=== PATIENT | female | born 1990 | race Two or more races ===

== ENCOUNTER 2019-07-09 15:36 | Emergency (ER) | payer OTHER ==
[~2019-07-09] VITALS: Ht 170.2 cm; Wt 65.8 kg
[~2019-07-09 15:36] MED LIST: DOCUSATE SODIU100 MG PO; FERROUS SU325 ( 65 ) PO; IRON1TAB4 PO; KETO10TA2 PO; MULTI COMPLETE1 EACH; Mylicon 125MG PO; OXYC1TAB9 PO; ZANTAC300 MG PO
== END 2019-07-09 20:29 | disposition home or self-care (01) ==
LOC: ER 15:36
DX: S00.83XA Contusion of other part of head, initial encounter (principal); W22.8XXA Striking against or struck by other objects, initial encounter; Y93.89 Activity, other specified; Y92.098 Other place in other non-institutional residence as the place of occurrence of the external cause; Y99.8 Other external cause status

== ENCOUNTER 2019-09-02 19:41 | Emergency (ER) | payer OTHER ==
[~2019-09-02] VITALS: Ht 162.6 cm; Wt 59.0 kg
== END 2019-09-02 20:26 | disposition home or self-care (01) ==
LOC: ER 19:41
DX: M25.512 Pain in left shoulder (principal); M25.511 Pain in right shoulder

== ENCOUNTER 2019-10-14 19:39 | Emergency (ER) | payer OTHER ==
[~2019-10-14] VITALS: Ht 162.6 cm; Wt 61.2 kg
== END 2019-10-14 21:24 | disposition home or self-care (01) ==
LOC: ER 19:39
DX: B34.9 Viral infection, unspecified (principal); Z03.818 Encounter for observation for suspected exposure to other biological agents ruled out; R51 Headache

== ENCOUNTER 2021-02-08 12:19 | Emergency (ER) | payer OTHER ==
[~2021-02-08] VITALS: Ht 162.6 cm; Wt 65.8 kg
== END 2021-02-08 14:16 | disposition home or self-care (01) ==
LOC: ER 12:19
DX: U07.1 COVID-19 (principal); B34.9 Viral infection, unspecified

== ENCOUNTER → 2021-10-14 | Emergency (ER) | payer OTHER ==
[~2021-10-14] VITALS: Ht 162.6 cm; Wt 63.5 kg
== END | disposition left against medical advice (07) ==
LOC: ER 01:28
DX: G43.909 Migraine, unspecified, not intractable, without status migrainosus (principal); R07.89 Other chest pain; Z20.828 Contact with and (suspected) exposure to other viral communicable diseases

== ENCOUNTER 2023-11-11 13:28 | Emergency (ER) | payer OTHER ==
[~2023-11-11] VITALS: Ht 162.6 cm; Wt 69.9 kg
[2023-11-11] MEDS ORDERED: ACETAMINOPHEN 325 MG TABLET PO ONE (14:15)
[2023-11-11 15:16] LABS: ALBUMIN 3.7 gm/dL (3.4-5.0); BILIRUBIN TOTAL 0.2 mg/dL (0.3-1.2); CALCIUM 8.8 mg/dL (8.5-10.1); CREATININE SERUM 0.64 mg/dL (0.55-1.02); GFR 108.23; POTASSIUM 3.33 mEq/L (3.5-5.1); TOTAL PROTEIN 7.7 gm/dL (6.4-8.2)
[2023-11-11 15:32] LABS: HEMOGLOBIN 11.5 g/dL (12.0-15.00); MEAN CELL VOLUME 82.6 fL (80.00-100.00); MEAN CORPUSCULAR HEMOGLOBIN 27.2 pg (27.00-32.0); MEAN CORPUSCULAR HGB CONC 32.9 g/dl (32.0-36.0); PLATELET COUNT 226 K/uL (150-450); RED BLOOD COUNT 4.24 M/uL (4.00-6.00)
[2023-11-11] MEDS ORDERED: BENZONATATE200 M1 PO (15:41)
[2023-11-11] MEDS ORDERED: PEPCID AC20 MG PO (15:41)
== END 2023-11-11 16:04 | disposition home or self-care (01) ==
LOC: ER 13:29
PROVIDERS: General Practice
DX: J00 Acute nasopharyngitis [common cold] (principal); Z20.822 Contact with and (suspected) exposure to COVID-19